=== PATIENT | female | born 1960 | race Caucasian/White ===

== ENCOUNTER → 2017-09-26 | Outpatient (CLI) | payer BC ==
[~2017-09-26] MED LIST: ASPIR 8181 MG PO; CELEBREX 200 M200 M1 PO; COLACE100 MG PO; FISH OIL 1,001000 M2 PO; FLECAINIDE ACET50 M1 PO; FLOMAX0.4 MG PO; GLUCOSAMINE HC500 MG PO; LOPRESSOR50 PO; PERCOCET PO; SIMVASTATIN40 MG PO; TYLENOL PM EX-1 EACH PO; UNICOMPLEX M TA1 TA1 PO; XARELTO10 MG PO
== END ==
LOC: M.MRI 11:24
DX: M25.461 Effusion, right knee (principal); M71.21 Synovial cyst of popliteal space [Baker], right knee; M23.91 Unspecified internal derangement of right knee; R60.0 Localized edema

== ENCOUNTER 2017-11-04 06:32 | Inpatient (IN) | payer BC ==
[2017-10-21 09:52] LABS: HEMOGLOBIN 14.1 gm/dL (12.0-15.0); MCH 29.4 pg (26.0-34.0); MCHC 33.6 g/dL (28.0-37.0); MCV 87.6 fL (80.0-100.0); MPV 6.8 fl. (7.2-11.1); RBC 4.79 mil/uL (4.20-5.00); RDW-CV 12.6 % (10.5-14.5); WBC 4.3 thou/uL (4.0-11.0)
[2017-10-21 10:00] LABS: PROTIME 9.8 Seconds (9.20-11.50)
[2017-10-21 10:24] LABS: URINE BILIRUBIN NEGATIVE (Negative); URINE BLOOD TRACE (Negative); URINE CLARITY CLEAR; URINE COLOR YELLOW; URINE GLUCOSE-RANDOM NEGATIVE (Negative); URINE KETONES NEGATIVE (Negative); URINE NITRITE-REFLEX NEGATIVE (Negative); URINE PROTEIN NEGATIVE (Negative); URINE SPECIFIC GRAVITY >= 1.030 (1.005-1.030); URINE UROBILINOGEN 0.2 E.U./dl (0.2-1.0)
[2017-10-21 10:25] LABS: URINE LEUKOCYTES-REFLEX 2+ (Negative)
[2017-10-21 10:32] LABS: MUCUS >6 Heavy strn/LPF (None Seen); SQUAMOUS >10 Many /LPF (0-3)
[2017-10-21 10:34] LABS: CASTS None Seen /LPF (None Seen); CRYSTALS None Seen /LPF (None Seen); URINE RBC 3-10 Few /HPF (0-2)
[2017-10-21 10:42] LABS: CALCIUM 9.1 mg/dL (8.5-10.1); CREATININE 0.5 mg/dL (0.6-1.3); TOTAL BILIRUBIN 1.7 mg/dL (<0.1-1.0); TOTAL PROTEIN 7.1 g/dL (6.4-8.2)
--- NOTE | 2017-10-21 14:53 | EKG ---
[place] [address] ELECTROCARDIOGRAM REPORT Name: DELMY GARCIA Room: PRE IN [facility].#: [id number] Admission: Attend Phys: Ana Lilia Calabrese Discharge: Date of : 62 Report #: [id number] THIS REPORT FOR: //name// [facility] Test Date: 2017-10-21 Test Time: 10:10:00 Pat Name: DELMY CAVAZOSGARY Department: Room: Gender: F Electrical Plumbing Supervisor: : 1960 Requested By: Michael Holbrook Order Number: [id number] Reading MD: Dwayne Gage Measurements Intervals Loraine Rate: 66 P: 69 FL: 241 QRS: -12 QRSD: 81 T: 46 QT: 393 QTc: 412 Interpretive Statements Sinus rhythm Prolonged FL interval Left atrial enlargement RSR' in V1 or V2, right VCD or RVH Inferior infarct, old No previous ECG available for comparison Electronically Signed On 10-21-2017 14:53:36 CDT by Dwayne Gage [email or web address] <ELECTRONICALLY SIGNED> By: Dwayne Gage MD, [facility] 10/21/17 1453 1010 1010 Dwayne Gage MD, FACC /EPI
[~2017-11-04] VITALS: Ht 162.6 cm; Wt 72.6 kg
[~2017-11-04 06:32] MED LIST changes: -COLACE100 MG PO; -FLOMAX0.4 MG PO; -PERCOCET PO; -XARELTO10 MG PO
[2017-11-04 08:30] VITALS: BP 158/87
[2017-11-04 11:45] VITALS: BP 147/64
[2017-11-04 16:14] VITALS: BP 144/59
[2017-11-04 21:00] VITALS: BP 120/59
[2017-11-05] VITALS (9 sets, daily range): BP systolic 108–138; BP diastolic 42–77
[2017-11-05 04:14] LABS: HEMATOCRIT 37.4 % (37.0-47.0); HEMOGLOBIN 12.3 gm/dL (12.0-15.0)
[2017-11-05] MEDS ORDERED: PERCOCET PO ×2 (10:08→14:59)
[2017-11-05] MEDS ORDERED: XARELTO10 MG PO (10:08)
[2017-11-05] MEDS ORDERED: FLOMAX0.4 MG PO (10:15)
[2017-11-05 13:01] LABS: URINE BILIRUBIN NEGATIVE (Negative); URINE BLOOD NEGATIVE (Negative); URINE CLARITY CLEAR; URINE COLOR YELLOW; URINE GLUCOSE-RANDOM NEGATIVE (Negative); URINE KETONES NEGATIVE (Negative); URINE LEUKOCYTES-REFLEX 1+ (Negative); URINE NITRITE-REFLEX NEGATIVE (Negative); URINE PROTEIN NEGATIVE (Negative); URINE SPECIFIC GRAVITY <= 1.005 (1.005-1.030); URINE UROBILINOGEN 0.2 E.U./dl (0.2-1.0)
[2017-11-05 13:10] LABS: BACTERIA-REFLEX 1-9 Few /HPF (None Seen); CASTS None Seen /LPF (None Seen); CRYSTALS None Seen /LPF (None Seen); MUCUS 0-3 Light strn/LPF (None Seen); SQUAMOUS >10 Many /LPF (0-3); URINE RBC 0-2 Rare /HPF (0-2); URINE WBC-REFLEX 0-5 Rare /HPF (0-5)
[2017-11-05] MEDS ORDERED: LOPRESSOR50 PO (14:50)
[2017-11-05] MEDS ORDERED: COLACE100 MG PO (15:06)
--- NOTE | 2017-11-25 10:42 | OP ---
[facility] [address] [place] [address] OPERATIVE REPORT Name: DELMY GARCIA Room: [address] IN M.R.#: [id number] Admission: 11/04/17 Attend Phys: Ana Lilia Calabrese Discharge: 11/05/17 Date of : 62 Report #: [id number] THIS REPORT FOR: //name// CC: Shai West DATE OF SERVICE: 11/04/2017 PREOPERATIVE DIAGNOSIS: Right knee osteoarthritis. POSTOPERATIVE DIAGNOSIS: Right knee osteoarthritis. PROCEDURE: Right total knee arthroplasty. SURGEON: Michael Holbrook II, DO. MOVING CONSULTANT: HANSEL Dale. ANESTHESIA: General endotracheal. ESTIMATED BLOOD LOSS: 50 mL. ANTIBIOTICS: Ancef preoperatively. DRAINS: Medium Hemovac. COMPLICATIONS: None. CONDITION: The patient is stable to recovery room. IMPLANTS: Listed in the operative record and progress note. BRIEF HISTORY: The patient was seen in the preoperative area. Preoperative H and P was performed. Site was marked, questions were answered. Risks and benefits were discussed with the patient in detail about the surgery. The patient wished to procedure and assumed all risks. DESCRIPTION OF PROCEDURE: The patient was taken to the operating suite and placed supine on the operative table and given appropriate anesthesia. A well-padded tourniquet applied to the upper thigh, which was inflated to 300 mmHg after gravity exsanguination. The operative knee was sterilely prepped and draped. Surgery began by midline incision. This was carried down through the subcutaneous tissues. A medial parapatellar arthrotomy was performed and carried down to bone. The bone was then everted and excess soft tissue removed from around the femur. The femoral cutting block was then applied and checked [facility] [address] [place] [address] OPERATIVE REPORT Name: DELMY GARCIA Room: [address] IN [facility].#: [id number] Admission: 11/04/17 Attend Phys: Ana Lilia Calabrese Discharge: 11/05/17 Date of : 62 Report #: [id number] with a drop jesu for rotation alignment in the prone position and appropriate cuts were made. A 4-in-1 cutting block was then applied and checked for rotation alignment in a prone position and appropriate cuts were made. The tibia was then exposed. The excess meniscus was removed. Retractor was placed on the collateral ligaments. The tibial cutting block was then applied, pinned in appropriate position, checked the drop jesu for rotational alignment and slope and appropriate cuts were made. The tibial bone was removed. The tibial base plate was then applied, checked for rotational alignment with the drop jesu and confirmed appropriate position. The femur was then applied and box cut was made. This was then trialed with the appropriate spacer, which showed excellent fit and fill, excellent stability of the knee through all range of motion. Three peg holes were drilled. It was then trialed and showed excellent flexion and extension, excellent tracking of the patella within the groove. The trial was then removed. The tibia was punched in appropriate fashion. Bone ends were cleansed with Pulsavac irrigation and cement was mixed and applied to the final implants. These were then malleted into position and held the knee in extension to compress to allow the cement to cure. After it cured, excess was removed utilizing a Dustin and osteotome. The wound was then copiously irrigated and the final spacer was then malleted into position. The tourniquet was deflated. Hemostasis was maintained with electrocautery. A pain cocktail was injected. PRP gel was sprayed throughout the internal aspects of the knee. A medium Hemovac drain was applied. The capsule was then closed with #2 FiberWire and #1 Vicryl in [id number] fashion. Skin was closed with 2-0 Vicryl and running 3-0 Monocryl. Dermabond and sterile dressing applied. Grady wrap and PolarCare applied. The patient transported to recovery in stable condition. Instrument counts correct throughout the procedure. <ELECTRONICALLY SIGNED> By: Michael Holbrook II, DO 11/25/17 1042 1224 1300Michael Holbrook II, DO /nt
== END 2017-11-05 17:05 | disposition home health service (06) | DRG 470 ==
LOC: M.PRE 06:32 → M.TBA 07:22 → M.PRE 08:03 → M.ORTHSURG 11:35 → M.PRE 11:43 → M.ORTHSURG 11-05 17:05
PROVIDERS: Internal Medicine; Orthopaedic Surgery; ADMIT Internal Medicine
PROC: 0SRC0J9 Replacement of Right Knee Joint with Synthetic Substitute, Cemented, Open Approach (ICD-10-PCS; principal; 2017-11-04)
DX: M17.11 Unilateral primary osteoarthritis, right knee (principal); I10 Essential (primary) hypertension; E78.00 Pure hypercholesterolemia, unspecified; Z79.82 Long term (current) use of aspirin; Z79.1 Long term (current) use of non-steroidal anti-inflammatories (NSAID); Z79.899 Other long term (current) drug therapy; Z90.710 Acquired absence of both cervix and uterus

== ENCOUNTER → 2019-03-01 | Outpatient (CLI) | payer BC ==
[~2019-03-01] MED LIST changes: +COLACE100 MG PO; +FLOMAX0.4 MG PO; +PERCOCET PO; +XARELTO10 MG PO
== END ==
LOC: M.RAD 10:52
DX: Z12.31 Encounter for screening mammogram for malignant neoplasm of breast (principal)